=== PATIENT | male | born 1965 | race Caucasian/White ===

== ENCOUNTER 2021-04-30 22:26 | Inpatient (IN) ==
[2021-04-30] MEDS ORDERED: ALBUTEROL/IPRATROPIUM 3 ML NEB RESP TX STA (22:49)
[2021-04-30] MEDS ORDERED: methylPREDNISolone SOD SUC 125 MG/2 ML VIAL IV STA (22:49)
[2021-05-01] MEDS ORDERED: ALBUTEROL/IPRATROPIUM 3 ML NEB RESP TX STA
[2021-05-01] MEDS ORDERED: hydrALAZINE 20 MG/1 ML VIAL IV PRN (00:05)
[2021-05-01] MEDS ORDERED: GLUCAGON 1 MG VIAL IM PRN (00:05)
[2021-05-01] MEDS ORDERED: guaiFENesin/DM ER 600-30 MG TABLET PO PRN (00:05)
[2021-05-01] MEDS ORDERED: DEXTROSE 10% 250 ML BAG IV PRN (00:05)
[2021-05-01] MEDS ORDERED: ZALEPLON 5 MG CAPSULE PO PRN (00:05)
[2021-05-01] MEDS ORDERED: DOCUSATE SODIUM 100 MG CAPSULE PO PRN (00:05)
[2021-05-01] MEDS ORDERED: ACETAMINOPHEN 325 MG TABLET PO PRN (00:05)
[2021-05-01] MEDS ORDERED: FUROSEMIDE 40 MG/4 ML VIAL IV STA (00:05)
[2021-05-01] MEDS ORDERED: ONDANSETRON 4 MG/2 ML VIAL IV PRN (00:05)
[2021-05-01] MEDS ORDERED: NICOTINE 21 MG/24 HR PATCH TRANSDERM PRN (00:05)
[2021-05-01] MEDS ORDERED: ALBUTEROL 2.5 MG/3 ML NEB RESP TX PRN (00:05)
[2021-05-01] MEDS ORDERED: diphenhydrAMINE CAP 25 MG CAPSULE PO PRN (00:05)
[2021-05-01] MEDS ORDERED: ENOXAPARIN 30 MG/0.3 ML SYRINGE SUBCUT STA (00:05)
[2021-05-01] MEDS ORDERED: ENOXAPARIN 100 MG/ML SYRINGE SUBCUT STA (00:06)
[2021-05-01] MEDS: LEVOFLOXACIN INJ 750 MG/150 ML PREMIX IV SCH (02:21)
[2021-05-01 02:45] LABS: Barbiturates Screen,Urine Negative (Negative); Benzodiazepines Screen,Urine Negative (Negative); Cannabinoid Screen,Urine Positive (Negative); Opiate Screen,Urine Negative (Negative); Phencyclidine Screen,Urine Negative (Negative)
[2021-05-01] MEDS: ALBUTEROL/IPRATROPIUM 3 ML NEB RESP TX SCH ×5 (03:27→21:13)
[2021-05-01 06:57] LABS: Basophils % 0.1 % (0.0-0.8); Hematocrit 33.1 VOL% (42.0-52.0); Immature Granulocytes % 0.6 %; Immature Granulocytes Absolute 0.04 #; Lymphocytes # 0.7 10*3/uL (1.4-4.0); Lymphocytes % 9.9 % (21.2-54.2); Mean Corpuscular HGB Conc 27.8 GM/DL (32-36); Mean Corpuscular Volume 72.3 FL (87-102); Mean Platelet Volume 8.4 FL (9.6-12.0); Neutrophils % 88.4 % (38.7-73.9); Platelet Count 466 T/CUMM (130-400); Red Blood Count 4.58 MC/CUMM (3.8-5.5); Red Cell Distribution Width 19.9 % (9.3-17.3); White Blood Count 6.8 T/CUMM (4-12)
[2021-05-01 07:05] LABS: Hemoglobin 9.2 GM/DL (14.0-18.0)
[2021-05-01 07:12] LABS: Calcium 8.4 MG/DL (8.5-10.1); Osmolality,Calculated 282.4 MOS/KG (273-304)
[2021-05-01 07:18] LABS: Hypochromia 2+; Lymphocytes 9 % (20-55); Microcytosis 1+; Segmented Neutrophils 90 % (50-85); Total Cells Counted 100
[2021-05-01] MEDS: BUDESONIDE 0.5 MG/2 ML NEB RESP TX SCH ×2 (07:50→21:13)
[2021-05-01] MEDS ORDERED: methylPREDNISolone SOD SUC 125 MG/2 ML VIAL IV SCH (08:00)
[2021-05-01 08:11] LABS: Bilirubin,Urine Negative (Negative); Blood, Urine Negative (Negative); Glucose,Urine (UA) Negative (Negative); Ketones,Urine Negative (Negative); Mucus,Urine Occasional /LPF (Occasional); Nitrite,Urine Negative (Negative); Protein,Urine 30 MG/DL; RBC,Urine 4 /HPF (0-4); Sperm,Urine Occasional /HPF (Negative); Urine Appearance CLEAR (Clear); Urine Color Yellow (Yellow); Urine Specific Gravity 1.029 (1.001-1.035); Urine Urobilinogen < 2.0 EU/DL (<2.0)
[2021-05-01] MEDS: ARFORMOTEROL 15 MCG/2 ML NEB RESP TX SCH ×2 (08:16→21:13)
[2021-05-01] MEDS: FUROSEMIDE 40 MG/4 ML VIAL IV SCH ×2 (08:53→17:21)
[2021-05-01] MEDS: PANTOPRAZOLE 40 MG TABLET PO SCH (08:54)
[2021-05-01] MEDS ORDERED: LISINOPRIL/HCTZ 10-12.5 MG TABLET PO SCH (09:00)
[2021-05-01 11:42] LABS: HIV Antigen/Antibody Result Nonreactive (Nonreactive)
[2021-05-01] MEDS ORDERED: methylPREDNISolone SOD SUC 40 MG/1 ML VIAL IM SCH (14:00)
[2021-05-01] MEDS: METOPROLOL TARTRATE 25 MG TABLET PO SCH ×2 (15:22→21:12)
[2021-05-01] MEDS: ASPIRIN EC 81 MG TABLET PO SCH (15:22)
[2021-05-01] MEDS: methylPREDNISolone SOD SUC 40 MG/1 ML VIAL IV SCH (17:14)
[2021-05-01] MEDS ORDERED: INSULIN REGULAR 100 UNIT/ML SUBCUT ONE (20:33)
[2021-05-02] MEDS: LEVOFLOXACIN INJ 750 MG/150 ML PREMIX IV SCH (00:15)
[2021-05-02] MEDS: ALBUTEROL/IPRATROPIUM 3 ML NEB RESP TX SCH ×3 (01:09→07:05)
[2021-05-02] MEDS: methylPREDNISolone SOD SUC 40 MG/1 ML VIAL IV SCH (04:11)
[2021-05-02 05:05] LABS: Risk Ratio 4.47; VLDL Cholesterol 23.6 MG/DL
[2021-05-02 05:08] LABS: Calcium 8.7 MG/DL (8.5-10.1); Osmolality,Calculated 282.8 MOS/KG (273-304); Potassium 3.1 MMOL/L (3.5-5.1); Thyroid Stimulating Hormone 0.848 uIU/ml (0.358-3.74)
[2021-05-02 05:11] LABS: Basophils % 0.1 % (0.0-0.8); Hemoglobin 9.8 GM/DL (14.0-18.0); Immature Granulocytes % 0.7 %; Immature Granulocytes Absolute 0.13 #; Lymphocytes # 1.1 10*3/uL (1.4-4.0); Lymphocytes % 5.5 % (21.2-54.2); Mean Corpuscular HGB Conc 27.6 GM/DL (32-36); Mean Corpuscular Volume 71.9 FL (87-102); Mean Platelet Volume 8.8 FL (9.6-12.0); Monocytes % 8.5 % (1.7-12.7); NRBC # 0.03 10*3/uL; Neutrophils % 85.2 % (38.7-73.9); Platelet Count 628 T/CUMM (130-400); Red Blood Count 4.94 MC/CUMM (3.8-5.5); Red Cell Distribution Width 19.9 % (9.3-17.3); White Blood Count 19.1 T/CUMM (4-12)
[2021-05-02 05:14] LABS: Hematocrit 35.5 VOL% (42.0-52.0)
[2021-05-02 05:44] LABS: Hypochromia 2+
[2021-05-02 05:45] LABS: Anisocytosis 1+; Microcytosis 1+; Ovalocytes Slight; Platelet Estimate Increased; Polychromasia Slight
[2021-05-02] MEDS: ARFORMOTEROL 15 MCG/2 ML NEB RESP TX SCH (07:05)
[2021-05-02] MEDS: BUDESONIDE 0.5 MG/2 ML NEB RESP TX SCH (07:05)
[2021-05-02] MEDS ORDERED: DIGOXIN 0.5 MG/2 ML AMP IV ONE ×2 (07:52→13:16)
[2021-05-02] MEDS ORDERED: POTASSIUM CHLORIDE 10 MEQ TABLET PO ONE (07:53)
[2021-05-02] MEDS ORDERED: POTASSIUM CHLORIDE 20 MEQ TABLET PO PRN (08:41)
[2021-05-02] MEDS: ASPIRIN EC 81 MG TABLET PO SCH (09:30)
[2021-05-02] MEDS: PANTOPRAZOLE 40 MG TABLET PO SCH (09:30)
[2021-05-02] MEDS: METOPROLOL TARTRATE 50 MG TABLET PO SCH ×2 (09:30→20:58)
[2021-05-02] MEDS: FUROSEMIDE 40 MG/4 ML VIAL IV SCH ×2 (09:31→17:24)
[2021-05-02 09:50] LABS: Basophils % 0.1 % (0.0-0.8); Hematocrit 32.3 VOL% (42.0-52.0); Immature Granulocytes % 0.9 %; Immature Granulocytes Absolute 0.15 #; Lymphocytes # 0.6 10*3/uL (1.4-4.0); Lymphocytes % 3.4 % (21.2-54.2); Mean Corpuscular HGB Conc 28.5 GM/DL (32-36); Mean Platelet Volume 8.7 FL (9.6-12.0); NRBC # 0.02 10*3/uL; Neutrophils % 92.6 % (38.7-73.9); Platelet Count 495 T/CUMM (130-400); Red Blood Count 4.55 MC/CUMM (3.8-5.5); Red Cell Distribution Width 19.5 % (9.3-17.3)
[2021-05-02 09:52] LABS: Hemoglobin 9.2 GM/DL (14.0-18.0)
[2021-05-02 09:59] LABS: Hypochromia 1+; Lymphocytes 3 % (20-55); Microcytosis 1+; Platelet Estimate Adequate; Segmented Neutrophils 96 % (50-85); Total Cells Counted 100
[2021-05-02] MEDS ORDERED: GLUCAGON 1 MG VIAL IM PRN (12:36)
[2021-05-02] MEDS ORDERED: DEXTROSE 10% 250 ML BAG IV PRN (12:36)
[2021-05-02] MEDS: lisinopriL 5 MG TABLET PO SCH (14:18)
[2021-05-02] MEDS: INSULIN REGULAR 100 UNIT/ML SUBCUT SCH ×2 (17:24→20:58)
[2021-05-03] MEDS: LEVOFLOXACIN INJ 750 MG/150 ML PREMIX IV SCH (02:58)
[2021-05-03 05:43] LABS: Calcium 7.8 MG/DL (8.5-10.1); Osmolality,Calculated 282.5 MOS/KG (273-304)
[2021-05-03 06:30] LABS: Basophils % 0.1 % (0.0-0.8); Eosinophils % 0.1 % (0.00-10.9); Hemoglobin 10.2 GM/DL (14.0-18.0); Immature Granulocytes % 0.8 %; Immature Granulocytes Absolute 0.16 #; Lymphocytes # 2.7 10*3/uL (1.4-4.0); Lymphocytes % 14.3 % (21.2-54.2); Mean Corpuscular HGB Conc 27.9 GM/DL (32-36); Mean Platelet Volume 8.7 FL (9.6-12.0); Monocytes % 7.2 % (1.7-12.7); NRBC # 0.03 10*3/uL; Neutrophils % 77.5 % (38.7-73.9); Platelet Count 568 T/CUMM (130-400); Red Blood Count 5.14 MC/CUMM (3.8-5.5); Red Cell Distribution Width 20.4 % (9.3-17.3)
[2021-05-03 06:33] LABS: Hematocrit 36.5 VOL% (42.0-52.0)
[2021-05-03 06:38] LABS: Anisocytosis 1+; Hypochromia 2+; Microcytosis 1+
[2021-05-03 06:39] LABS: Platelet Estimate Increased
[2021-05-03] MEDS: BUDESONIDE 0.5 MG/2 ML NEB RESP TX SCH (06:50)
[2021-05-03] MEDS: ARFORMOTEROL 15 MCG/2 ML NEB RESP TX SCH (06:50)
[2021-05-03] MEDS: INSULIN REGULAR 100 UNIT/ML SUBCUT SCH ×2 (08:46→12:17)
[2021-05-03] MEDS: lisinopriL 5 MG TABLET PO SCH (08:47)
[2021-05-03] MEDS: PANTOPRAZOLE 40 MG TABLET PO SCH (08:47)
[2021-05-03] MEDS: FUROSEMIDE 40 MG/4 ML VIAL IV SCH (08:47)
[2021-05-03] MEDS: ASPIRIN EC 81 MG TABLET PO SCH (08:47)
[2021-05-03] MEDS: METOPROLOL TARTRATE 50 MG TABLET PO SCH (08:48)
[2021-05-03] MEDS ORDERED: POTASSIUM CHLORIDE 20 MEQ TABLET PO ONE (08:55)
[2021-05-03] MEDS ORDERED: MAGNESIUM SULF RIDER 2 GM/50 ML PREMIX IV ONE (08:55)
[2021-05-03] MEDS ORDERED: predniSONE 20 MG TABLET PO SCH (09:00)
[2021-05-03 11:56] VITALS: BP 96/68
== END 2021-05-03 13:20 | disposition home or self-care (01) | DRG 291 ==
LOC: EDBD → EDUNIT# → N.ED 22:26 → N.EDINP 05-01 00:05 → N.TELEN 05-01 17:40
PROVIDERS: ADMIT Internal Medicine; ATTEND Internal Medicine

== ENCOUNTER 2021-05-17 16:33 | Inpatient (IN) ==
[2021-05-17 17:40] LABS: Albumin 2.6 G/DL (3.4-5.0); Bilirubin,Total 0.4 MG/DL (0.20-1.00); Calcium 8.2 MG/DL (8.5-10.1); Osmolality,Calculated 273.8 MOS/KG (273-304)
[2021-05-17 17:51] LABS: Basophils % 0.4 % (0.0-0.8); Eosinophils # 0.1 10*3/uL (0.0-0.87); Eosinophils % 1.7 % (0.00-10.9); Hemoglobin 8.6 GM/DL (14.0-18.0); Immature Granulocytes % 0.4 %; Immature Granulocytes Absolute 0.03 #; Lymphocytes # 1.6 10*3/uL (1.4-4.0); Lymphocytes % 21.1 % (21.2-54.2); Mean Corpuscular HGB Conc 27.7 GM/DL (32-36); Mean Corpuscular Volume 72.6 FL (87-102); Mean Platelet Volume 8.7 FL (9.6-12.0); Monocytes % 10.7 % (1.7-12.7); Neutrophils % 65.7 % (38.7-73.9); Platelet Count 425 T/CUMM (130-400); Red Blood Count 4.27 MC/CUMM (3.8-5.5); White Blood Count 7.7 T/CUMM (4-12)
[2021-05-17 17:53] LABS: Acanthocytes Few; Anisocytosis 2+; Elliptocytes Few; Hypochromia 1+; Macrocytosis Slight; Microcytosis 2+; Platelet Estimate Normal; Poikilocytosis Few; Polychromasia 1+; Target Cells 1+
[2021-05-17 19:11] LABS: Bilirubin,Urine Negative (Negative); Blood, Urine Negative (Negative); Glucose,Urine (UA) Negative (Negative); Ketones,Urine Negative (Negative); Nitrite,Urine Negative (Negative); Protein,Urine Negative; Urine Appearance Clear (Clear); Urine Color Yellow (Yellow)
[2021-05-17 19:14] LABS: Hyaline Casts,Urine 1 /LPF (0-3); Mucus,Urine Occasional /LPF (Occasional)
[2021-05-17 20:16] LABS: Barbiturates Screen,Urine Negative (Negative); Benzodiazepines Screen,Urine Negative (Negative); Cannabinoid Screen,Urine Positive (Negative); Opiate Screen,Urine Negative (Negative); Phencyclidine Screen,Urine Negative (Negative)
[2021-05-17] MEDS ORDERED: FUROSEMIDE 40 MG/4 ML VIAL IV STA (20:31)
[2021-05-17] MEDS ORDERED: GLUCAGON 1 MG VIAL IM PRN (20:31)
[2021-05-17] MEDS ORDERED: hydrALAZINE 20 MG/1 ML VIAL IV PRN (20:31)
[2021-05-17] MEDS ORDERED: ONDANSETRON 4 MG/2 ML VIAL IV PRN (20:31)
[2021-05-17] MEDS ORDERED: ACETAMINOPHEN 325 MG TABLET PO PRN (20:31)
[2021-05-17] MEDS ORDERED: POTASSIUM CHLORIDE 20 MEQ TABLET PO PRN (20:40)
[2021-05-17] MEDS ORDERED: DEXTROSE 10% 250 ML BAG IV PRN (20:42)
[2021-05-17] MEDS ORDERED: MORPHINE 4 MG/1 ML VIAL IV PRN (20:42)
[2021-05-17] MEDS ORDERED: ALBUTEROL/IPRATROPIUM 3 ML NEB RESP TX PRN (21:03)
[2021-05-17] MEDS: METOPROLOL TARTRATE 50 MG TABLET PO SCH (21:41)
[2021-05-18 04:38] LABS: Basophils % 0.2 % (0.0-0.8); Eosinophils # 0.2 10*3/uL (0.0-0.87); Eosinophils % 1.8 % (0.00-10.9); Hemoglobin 9.2 GM/DL (14.0-18.0); Immature Granulocytes % 0.5 %; Immature Granulocytes Absolute 0.05 #; Lymphocytes % 19.6 % (21.2-54.2); Mean Corpuscular HGB Conc 27.8 GM/DL (32-36); Mean Corpuscular Volume 72.1 FL (87-102); Mean Platelet Volume 8.7 FL (9.6-12.0); Monocytes % 10.8 % (1.7-12.7); Neutrophils % 67.1 % (38.7-73.9); Platelet Count 465 T/CUMM (130-400); Red Blood Count 4.59 MC/CUMM (3.8-5.5); White Blood Count 10.2 T/CUMM (4-12)
[2021-05-18 04:39] LABS: Hematocrit 33.1 VOL% (42.0-52.0)
[2021-05-18 04:57] LABS: Anisocytosis 1+; Platelet Estimate Normal
[2021-05-18 04:58] LABS: Hypochromia Slight; Macrocytosis Slight; Tear Drop Cells Few
[2021-05-18 05:44] LABS: Calcium 8.4 MG/DL (8.5-10.1); Osmolality,Calculated 276.7 MOS/KG (273-304); Potassium 4.3 MMOL/L (3.5-5.1)
[2021-05-18 06:13] LABS: % Iron Saturation 3.5 % (18-50); Ferritin 6.1 ng/mL (26-388)
[2021-05-18 06:24] LABS: Folate 19.31 NG/ML (5.38-24.0)
[2021-05-18] MEDS: ASPIRIN EC 81 MG TABLET PO SCH (08:37)
[2021-05-18] MEDS: FERROUS SULFATE 325 MG TABLET PO SCH ×2 (08:37→20:33)
[2021-05-18] MEDS: PANTOPRAZOLE 40 MG TABLET PO SCH (08:38)
[2021-05-18] MEDS: POTASSIUM CHLORIDE 20 MEQ TABLET PO SCH (08:38)
[2021-05-18] MEDS: METOPROLOL TARTRATE 50 MG TABLET PO SCH ×2 (08:38→20:33)
[2021-05-18] MEDS: lisinopriL 10 MG TABLET PO SCH (08:38)
[2021-05-18] MEDS: FUROSEMIDE 40 MG/4 ML VIAL IV SCH (08:41)
[2021-05-18] MEDS: ENOXAPARIN 40 MG/0.4 ML SYRINGE SUBCUT SCH (08:42)
[2021-05-18] MEDS: BUDESONIDE/FORMOTEROL 80-4.5 INHALER 6.9 GM INH SCH ×2 (11:35→20:34)
[2021-05-19 05:48] LABS: Basophils % 0.2 % (0.0-0.8); Immature Granulocytes % 0.5 %; Immature Granulocytes Absolute 0.04 #; Platelet Count 462 T/CUMM (130-400); White Blood Count 8.3 T/CUMM (4-12)
[2021-05-19 05:57] LABS: Calcium 8.4 MG/DL (8.5-10.1); Osmolality,Calculated 272.2 MOS/KG (273-304)
[2021-05-19 06:05] LABS: Eosinophils # 0.2 10*3/uL (0.0-0.87); Eosinophils % 1.9 % (0.00-10.9); Hematocrit 32.7 VOL% (42.0-52.0); Lymphocytes # 2.3 10*3/uL (1.4-4.0); Lymphocytes % 27.6 % (21.2-54.2); Mean Corpuscular HGB Conc 27.8 GM/DL (32-36); Mean Platelet Volume 9.1 FL (9.6-12.0); Monocytes % 11.7 % (1.7-12.7); Neutrophils % 58.1 % (38.7-73.9); Red Blood Count 4.54 MC/CUMM (3.8-5.5); Red Cell Distribution Width 22.1 % (9.3-17.3)
[2021-05-19 06:10] LABS: Hemoglobin 9.1 GM/DL (14.0-18.0)
[2021-05-19 06:23] LABS: Hypochromia Slight; Microcytosis 1+; Platelet Estimate Increased
[2021-05-19] MEDS: lisinopriL 10 MG TABLET PO SCH (11:07)
[2021-05-19] MEDS: POTASSIUM CHLORIDE 20 MEQ TABLET PO SCH (11:07)
[2021-05-19] MEDS: ASPIRIN EC 81 MG TABLET PO SCH (11:07)
[2021-05-19] MEDS: PANTOPRAZOLE 40 MG TABLET PO SCH (11:07)
[2021-05-19] MEDS: METOPROLOL TARTRATE 50 MG TABLET PO SCH ×2 (11:07→21:19)
[2021-05-19] MEDS: FERROUS SULFATE 325 MG TABLET PO SCH ×2 (11:07→21:19)
[2021-05-19] MEDS: ENOXAPARIN 40 MG/0.4 ML SYRINGE SUBCUT SCH (11:08)
[2021-05-19] MEDS: BUDESONIDE/FORMOTEROL 80-4.5 INHALER 6.9 GM INH SCH ×2 (11:08→21:19)
[2021-05-19] MEDS: FUROSEMIDE 40 MG/4 ML VIAL IV SCH (11:13)
[2021-05-20 05:58] LABS: Calcium 8.3 MG/DL (8.5-10.1); Potassium 4.4 MMOL/L (3.5-5.1)
[2021-05-20 06:01] LABS: Basophils % 0.4 % (0.0-0.8); Eosinophils # 0.1 10*3/uL (0.0-0.87); Hematocrit 35.9 VOL% (42.0-52.0); Immature Granulocytes % 0.6 %; Immature Granulocytes Absolute 0.06 #; Lymphocytes # 2.1 10*3/uL (1.4-4.0); Lymphocytes % 20.1 % (21.2-54.2); Mean Corpuscular HGB Conc 27.9 GM/DL (32-36); Mean Corpuscular Volume 71.5 FL (87-102); Monocytes % 10.5 % (1.7-12.7); NRBC # 0.02 10*3/uL; Neutrophils % 67.4 % (38.7-73.9); Platelet Count 541 T/CUMM (130-400); Red Blood Count 5.02 MC/CUMM (3.8-5.5); Red Cell Distribution Width 22.4 % (9.3-17.3); White Blood Count 10.7 T/CUMM (4-12)
[2021-05-20] MEDS: FUROSEMIDE 40 MG/4 ML VIAL IV SCH (09:04)
[2021-05-20] MEDS: PANTOPRAZOLE 40 MG TABLET PO SCH (09:05)
[2021-05-20] MEDS: METOPROLOL TARTRATE 50 MG TABLET PO SCH ×2 (09:05→21:23)
[2021-05-20] MEDS: ASPIRIN EC 81 MG TABLET PO SCH (09:05)
[2021-05-20] MEDS: POTASSIUM CHLORIDE 20 MEQ TABLET PO SCH (09:05)
[2021-05-20] MEDS: lisinopriL 10 MG TABLET PO SCH (09:05)
[2021-05-20] MEDS: FERROUS SULFATE 325 MG TABLET PO SCH ×2 (09:05→21:23)
[2021-05-20] MEDS: ENOXAPARIN 40 MG/0.4 ML SYRINGE SUBCUT SCH (09:06)
[2021-05-20] MEDS: BUDESONIDE/FORMOTEROL 80-4.5 INHALER 6.9 GM INH SCH ×2 (09:07→21:24)
[2021-05-20] MEDS: cefTRIAXone 1,000 MG in SODIUM CHLORIDE 0.9% 100 ML IV SCH (15:14)
[2021-05-20] MEDS: DOXYCYCLINE HYCLATE INJ 100 MG in SODIUM CHLORIDE 0.9% 100 ML IV SCH (16:46)
[2021-05-21] MEDS: DOXYCYCLINE HYCLATE INJ 100 MG in SODIUM CHLORIDE 0.9% 100 ML IV SCH ×2 (03:48→21:51)
[2021-05-21 05:55] LABS: Calcium 8.5 MG/DL (8.5-10.1); Osmolality,Calculated 274.1 MOS/KG (273-304); Potassium 4.3 MMOL/L (3.5-5.1)
[2021-05-21 06:23] LABS: Basophils % 0.4 % (0.0-0.8); Eosinophils # 0.2 10*3/uL (0.0-0.87); Eosinophils % 2.1 % (0.00-10.9); Hematocrit 37.9 VOL% (42.0-52.0); Hemoglobin 10.7 GM/DL (14.0-18.0); Immature Granulocytes % 0.6 %; Immature Granulocytes Absolute 0.06 #; Lymphocytes # 2.3 10*3/uL (1.4-4.0); Lymphocytes % 21.4 % (21.2-54.2); Mean Corpuscular HGB Conc 28.2 GM/DL (32-36); Mean Corpuscular Volume 71.6 FL (87-102); Mean Platelet Volume 8.8 FL (9.6-12.0); Monocytes % 12.7 % (1.7-12.7); Neutrophils % 62.8 % (38.7-73.9); Platelet Count 546 T/CUMM (130-400); Red Blood Count 5.29 MC/CUMM (3.8-5.5); Red Cell Distribution Width 23.1 % (9.3-17.3); White Blood Count 10.6 T/CUMM (4-12)
[2021-05-21] MEDS: PANTOPRAZOLE 40 MG TABLET PO SCH (09:00)
[2021-05-21] MEDS: FUROSEMIDE 40 MG/4 ML VIAL IV SCH (09:00)
[2021-05-21] MEDS: POTASSIUM CHLORIDE 20 MEQ TABLET PO SCH (09:00)
[2021-05-21] MEDS: lisinopriL 10 MG TABLET PO SCH (09:00)
[2021-05-21] MEDS: FERROUS SULFATE 325 MG TABLET PO SCH ×2 (09:00→21:50)
[2021-05-21] MEDS: ASPIRIN EC 81 MG TABLET PO SCH (09:00)
[2021-05-21] MEDS: METOPROLOL TARTRATE 50 MG TABLET PO SCH ×2 (09:01→21:50)
[2021-05-21] MEDS: BUDESONIDE/FORMOTEROL 80-4.5 INHALER 6.9 GM INH SCH (09:01)
[2021-05-21] MEDS: ENOXAPARIN 40 MG/0.4 ML SYRINGE SUBCUT SCH (14:58)
[2021-05-21] MEDS: cefTRIAXone 1,000 MG in SODIUM CHLORIDE 0.9% 100 ML IV SCH (14:58)
[2021-05-21] MEDS: buPROPion SR 100 MG TABLET PO SCH (17:50)
[2021-05-21] MEDS: NICOTINE 21 MG/24 HR PATCH TRANSDERM SCH (17:51)
[2021-05-21] MEDS: PIPERACILLIN/TAZOBACTAM 3,375 MG in SODIUM CHLORIDE 0.9% 100 ML IV SCH (18:21)
[2021-05-22] MEDS: PIPERACILLIN/TAZOBACTAM 3,375 MG in SODIUM CHLORIDE 0.9% 100 ML IV SCH ×3 (01:00→17:14)
[2021-05-22 06:25] LABS: Calcium 8.3 MG/DL (8.5-10.1); Osmolality,Calculated 272.1 MOS/KG (273-304); Potassium 3.9 MMOL/L (3.5-5.1)
[2021-05-22 06:35] LABS: Basophils % 0.3 % (0.0-0.8); Eosinophils # 0.3 10*3/uL (0.0-0.87); Eosinophils % 2.9 % (0.00-10.9); Hematocrit 37.3 VOL% (42.0-52.0); Immature Granulocytes % 0.4 %; Immature Granulocytes Absolute 0.04 #; Lymphocytes % 21.8 % (21.2-54.2); Mean Corpuscular HGB Conc 28.2 GM/DL (32-36); Mean Corpuscular Volume 72.7 FL (87-102); Monocytes % 10.3 % (1.7-12.7); Neutrophils % 64.3 % (38.7-73.9); Platelet Count 494 T/CUMM (130-400); Red Blood Count 5.13 MC/CUMM (3.8-5.5); Red Cell Distribution Width 23.6 % (9.3-17.3)
[2021-05-22 06:36] LABS: Hemoglobin 10.5 GM/DL (14.0-18.0)
[2021-05-22] MEDS: POTASSIUM CHLORIDE 20 MEQ TABLET PO SCH (08:48)
[2021-05-22] MEDS: ASPIRIN EC 81 MG TABLET PO SCH (08:48)
[2021-05-22] MEDS: FERROUS SULFATE 325 MG TABLET PO SCH ×2 (08:48→21:34)
[2021-05-22] MEDS: LOSARTAN 25 MG TABLET PO SCH (08:48)
[2021-05-22] MEDS: METOPROLOL TARTRATE 50 MG TABLET PO SCH ×2 (08:49→21:34)
[2021-05-22] MEDS: NICOTINE 21 MG/24 HR PATCH TRANSDERM SCH (08:49)
[2021-05-22] MEDS: PANTOPRAZOLE 40 MG TABLET PO SCH (08:49)
[2021-05-22] MEDS: buPROPion SR 100 MG TABLET PO SCH (08:49)
[2021-05-22] MEDS: DOXYCYCLINE HYCLATE 100 MG CAPSULE PO SCH ×2 (08:51→21:34)
[2021-05-22] MEDS: FUROSEMIDE 40 MG/4 ML VIAL IV SCH (08:54)
[2021-05-22] MEDS: ENOXAPARIN 40 MG/0.4 ML SYRINGE SUBCUT SCH (08:55)
[2021-05-22] MEDS: BUDESONIDE/FORMOTEROL 80-4.5 INHALER 6.9 GM INH SCH ×3 (08:57→21:35)
[2021-05-23] MEDS: PIPERACILLIN/TAZOBACTAM 3,375 MG in SODIUM CHLORIDE 0.9% 100 ML IV SCH ×2 (01:17→09:50)
[2021-05-23] MEDS: BUDESONIDE/FORMOTEROL 80-4.5 INHALER 6.9 GM INH SCH (09:30)
[2021-05-23] MEDS: ASPIRIN EC 81 MG TABLET PO SCH (09:31)
[2021-05-23] MEDS: PANTOPRAZOLE 40 MG TABLET PO SCH (09:31)
[2021-05-23] MEDS: LOSARTAN 25 MG TABLET PO SCH (09:31)
[2021-05-23] MEDS: FERROUS SULFATE 325 MG TABLET PO SCH (09:31)
[2021-05-23] MEDS: buPROPion SR 100 MG TABLET PO SCH (09:31)
[2021-05-23] MEDS: POTASSIUM CHLORIDE 20 MEQ TABLET PO SCH (09:31)
[2021-05-23] MEDS: METOPROLOL TARTRATE 50 MG TABLET PO SCH (09:31)
[2021-05-23] MEDS: DOXYCYCLINE HYCLATE 100 MG CAPSULE PO SCH (09:31)
[2021-05-23] MEDS: NICOTINE 21 MG/24 HR PATCH TRANSDERM SCH (09:32)
[2021-05-23] MEDS: FUROSEMIDE 40 MG/4 ML VIAL IV SCH (09:46)
[2021-05-23] MEDS: ENOXAPARIN 40 MG/0.4 ML SYRINGE SUBCUT SCH (09:46)
[2021-05-23 12:02] VITALS: BP 105/71
[2021-05-24] MEDS ORDERED: FUROSEMIDE 40 MG TABLET PO SCH (09:00)
== END 2021-05-23 14:01 | disposition home or self-care (01) | DRG 291 ==
LOC: EDUNIT# → EDBD → N.ED 16:33 → N.EDINP 16:33 → SUATTDRO 20:04 → N.EDINP 05-18 05:55 → N.5E 05-18 06:15 → SUATTDRO 05-20 12:21
PROVIDERS: ADMIT Internal Medicine; ATTEND Hospitalist